=== PATIENT | female | born 1980 | race Caucasian/White ===

== ENCOUNTER 2023-02-06 01:38 | Emergency (ER) | payer BC ==
[~2023-02-06] VITALS: Ht 160 cm; Wt 59.1 kg
[2023-02-06 01:44] VITALS: BP 138/91
[2023-02-06] MEDS ORDERED: LIDOCAINE 2%/EPI 1:100,000 inj. Multi-dose 20 ML VIAL IJ STA (03:40)
== END 2023-02-06 04:17 | disposition home or self-care (01) ==
LOC: ER 01:39
DX: S01.411A Laceration without foreign body of right cheek and temporomandibular area, initial encounter (principal); Y04.8XXA Assault by other bodily force, initial encounter; Y93.89 Activity, other specified; Y92.89 Other specified places as the place of occurrence of the external cause; Y99.8 Other external cause status
CPT/HCPCS: 12011; 70450; 70486; 99284